=== PATIENT | male | born 1970 | race Caucasian/White ===

== ENCOUNTER 2021-01-12 12:39 | Emergency (ER) | payer MEDICAID ==
[~2021-01-12] VITALS: Ht 182.9 cm; Wt 90.7 kg
--- NOTE | 2021-01-12 13:02 | NUR ---
50 years old male alert, oriented x4 walking to er c/o chest pain, radiate to left shoulder with poor appetite, denies nausea/vomiting.
[2021-01-12 13:32] LABS: BASOPHILS % (AUTO) 0.7 % (0.0-2.0); EOSINOPHILS % (AUTO) 2.6 % (0.0-6.0); HEMATOCRIT 41 % (39-51); LYMPHOCYTES # (AUTO) 1.9 /CMM (0.8-4.8); LYMPHOCYTES % (AUTO) 33.3 % (20.0-44.0); MEAN CORPUSCULAR HGB CONC 35 g/dl (31.0-36.0); MEAN CORPUSCULAR VOLUME 84 fL (80-96); MONOCYTES # (AUTO) 0.6 /CMM (0.1-1.30); MONOCYTES % (AUTO) 9.7 % (2.0-12.0); NEUTROPHILS # (AUTO) 3.1 /CMM (1.8-8.9); NEUTROPHILS % (AUTO) 53.7 % (43.0-81.0); PLATELET COUNT (AUTO) 179 /CMM (150-450); RED BLOOD CELL COUNT(AUTO) 4.82 MIL/uL (4.5-6.0); WHITE BLOOD COUNT (AUTO) 5.7 K/uL (4.3-11.0)
[2021-01-12 13:46] LABS: CALCIUM, SERUM 8.9 mg/dL (8.5-10.1); CARBON DIOXIDE 27 mmol/L (21-32); CHLORIDE 91 mmol/L (98-107); CREATININE 1.1 mg/dL (0.6-1.3); POTASSIUM 4.3 mmol/L (3.5-5.1); SODIUM SERUM 128 mmol/L (136-145); UREA NITROGEN, BLOOD 10 mg/dL (7-18)
[2021-01-12 13:47] LABS: GLUCOSE 608 mg/dL (74-106)
--- NOTE | 2021-01-12 14:21 | NUR ---
patient alert, oriented x4 ambulatory with steady gait, refused to be admitted for hyperglycemia eloped, ER provider notified.
[2021-01-12] MEDS ORDERED: METF-440 PO (14:39)
--- NOTE | 2021-01-12 14:40 | NUR ---
patient returns to ER bed 9 Dr Velazquez talked to /patient both agree to sign AMA.
[2021-01-12 14:54] VITALS: BP 140/80
== END 2021-01-12 14:55 | disposition left against medical advice (07) ==
LOC: ER 12:49
DX: R07.9 Chest pain, unspecified (principal); R94.31 Abnormal electrocardiogram [ECG] [EKG]; Z53.21 Procedure and treatment not carried out due to patient leaving prior to being seen by health care provider
CPT/HCPCS: 36415; 71045-TC; 80048-TC; 84484-TC; 85025-TC

== ENCOUNTER 2021-08-21 09:16 | Emergency (ER) | payer MEDICAID ==
[~2021-08-21] VITALS: Ht 175.3 cm; Wt 90.7 kg
[~2021-08-21 09:16] MED LIST: METF-440 PO
[2021-08-21 09:52] VITALS: BP 146/82
--- NOTE | 2021-08-21 10:00 | NUR ---
BIBS SOB WORST AT NIGHT TIME SINCE FRIDAY, TESTED + COVID YESTERDAY. OXYGEN SATURATION LEVEL IN RA IS AT 99%. RESPIRATION REGULAR AND UNLABORED. DENIES PAIN. WILL CONTINUE TO MONITOR THE PATIENT.
--- NOTE | 2021-08-21 11:24 | NUR ---
Patient discharged to home in stable condition. Written and verbal after care instructions given. Patient verbalizes understanding of instruction.
== END 2021-08-21 11:25 | disposition home or self-care (01) ==
LOC: ER 09:26
DX: U07.1 COVID-19 (principal); E11.9 Type 2 diabetes mellitus without complications; F17.200 Nicotine dependence, unspecified, uncomplicated; Z79.84 Long term (current) use of oral hypoglycemic drugs

== ENCOUNTER 2023-04-30 13:59 | Emergency (ER) | payer OTHER ==
[~2023-04-30] VITALS: Ht 182.9 cm; Wt 90.7 kg
[2023-04-30] MEDS ORDERED: LABETALOL 20 MG/4 ML VIAL IV ONE (14:30)
[2023-04-30] MEDS ORDERED: IV NS 0.9% 1,000 ML IV ONE (14:30)
[2023-04-30 14:53] LABS: BASOPHILS # (AUTO) 0.1 K/uL (0.0-0.2); BASOPHILS % (AUTO) 0.7 % (0.0-2.0); EOSINOPHILS # (AUTO) 0.1 K/uL (0.0-0.7); EOSINOPHILS % (AUTO) 1.1 % (0.0-6.0); HEMATOCRIT 46 % (39-51); HEMOGLOBIN 15.2 g/dL (13.5-17.5); MEAN CORPUSCULAR HEMOGLOBIN 28 PG (26.0-33.0); MEAN CORPUSCULAR HGB CONC 33 g/dl (31.0-36.0); MEAN CORPUSCULAR VOLUME 84 fL (80-96); MONOCYTES # (AUTO) 0.9 K/uL (0.1-1.30); NEUTROPHILS # (AUTO) 9.2 K/uL (1.8-8.9); NEUTROPHILS % (AUTO) 75.2 % (43.0-81.0); PLATELET COUNT (AUTO) 198 K/uL (150-450); RED BLOOD CELL COUNT(AUTO) 5.41 MIL/uL (4.5-6.0); RED CELL DISTRIBUTION WIDTH 13.3 % (11.5-15.0); WHITE BLOOD COUNT (AUTO) 12.2 K/uL (4.3-11.0)
[2023-04-30 15:07] LABS: ALBUMIN 4.4 g/dL (3.4-5.0); BILIRUBIN,TOTAL 0.6 mg/dL (0.2-1.0); CALCIUM, SERUM 9.7 mg/dL (8.5-10.1); CREATININE 0.9 mg/dL (0.6-1.3); POTASSIUM 5.7 mmol/L (3.5-5.1); TOTAL PROTEIN, SERUM 8.6 g/dL (6.4-8.2)
[2023-04-30] MEDS ORDERED: CLONIDINE HCL 0.1 MG TABLET PO ONE (15:30)
[2023-04-30] MEDS ORDERED: HYDR12.55 PO (15:42)
[2023-04-30] MEDS ORDERED: CLONIDINE HCL 0.1 MG TABLET ONE (16:24)
[2023-04-30 17:19] VITALS: BP 126/88; TEMP 98.2; O2SAT 96
== END 2023-04-30 17:19 | disposition home or self-care (01) ==
LOC: ER 14:05
DX: I10 Essential (primary) hypertension (principal); E11.65 Type 2 diabetes mellitus with hyperglycemia; F17.200 Nicotine dependence, unspecified, uncomplicated; Z79.899 Other long term (current) drug therapy
CPT/HCPCS: 99285; 71045; 93005; 85025; 80048; 83690; 80076; 36415; 84484; 82962; J3490; J7030